=== PATIENT | male | born 1980 | race American Indian/Alaskan Native ===

== ENCOUNTER 2018-12-20 08:46 | Emergency (ER) | payer SELFPAY ==
[2018-12-20 09:05] VITALS: BP 148/96
[2018-12-20 10:00] LABS: Basophils # (Auto) 0.1 K/mm3 (0.0-0.1); Basophils % (Auto) 2.6 % (0.0-1.8); Eosinophils # (Auto) 0.1 K/mm3 (0.0-0.4); Eosinophils % (Auto) 2.4 % (0.0-4.3); Hematocrit 46.6 % (35.5-45.6); Hemoglobin 15.8 gm/dl (11.8-15.2); Lymphocytes # (Auto) 1.4 K/mm3 (1.2-5.4); Lymphocytes % (Auto) 32.7 % (13.4-35.0); Mean Corpuscular HGB Conc 34 % (32-34); Mean Corpuscular Volume 89 fl (84-94); Monocytes # (Auto) 0.3 K/mm3 (0.0-0.8); Monocytes % (Auto) 8.2 % (0.0-7.3); Platelet Count 236 K/mm3 (140-440); Red Blood Count 5.21 M/mm3 (3.65-5.03); Red Cell Distribution Width 13.5 % (13.2-15.2)
--- NOTE | 2018-12-20 10:04 | Emergency Department Report ---
ED Chest Pain HPI - General Chief Complaint: Chest Pain Stated Complaint: CHEST PAIN Time Seen by Provider: 12/20/18 10:00 Source: patient Mode of arrival: Ambulatory Limitations: No Limitations - History of Present Illness Initial Comments: 38-year-old male with no past medical history to ED with chest pain since yesterday. Patient states pain is substernal, sharp in nature and feels as if something is pulling. Patient states he noticed pain yesterday when getting ready for work. Patient works for [employer]. Denies fever, cough, shortness of breath, nausea or vomiting, diaphoresis, leg pain or swelling. Patient denies any aggravating or alleviating factors. Denies tobacco or drug use. Pt states think she may have pulled a muscle. MD Complaint: chest pain -: days(s) (1) Onset: during rest Pain Location: substernal Pain Radiation: none Severity: mild Quality: sharp, other ("pulling") Consistency: constant Improves With: nothing re: denies: nausea, vomting, diaphoresis, dyspnea Other Symptoms: denies: cough, fever, leg swelling, palpitations - Related Data Previous Rx's Medication Instructions Recorded Last Taken Type Naproxen [Naprosyn] 500 mg PO BID #20 tablet 12/20/18 Unknown Rx methOCARBAMOL [Robaxin TAB] 500 mg PO Q8HR PRN #20 tablet 12/20/18 Unknown Rx Allergies Allergy/AdvReac Type Severity Reaction Status Date / Time No Known Allergies Allergy Unverified 12/20/18 09:00 Heart Score - HEART Score History: Slightly suspicious EKG: Normal Age: < 45 Risk factors: No known risk factors Troponin: < normal limit HEART Score: 0 - Critical Actions Critical Actions: 0-3 pts:0.9-1.7%risk of adverse cardiac event.Candidate for discharge ED Review of Systems ROS: Stated complaint: CHEST PAIN Other details as noted in HPI Comment: All other systems reviewed and negative Constitutional: denies: chills, fever Respiratory: denies: cough, shortness of breath Cardiovascular: chest pain Gastrointestinal: denies: nausea, vomiting Musculoskeletal: other (denies leg pain or swelling) ED Past Medical Hx - Past Medical History Previous Medical History?: No - Surgical History Additional Surgical History: BACK - Social History Smoking Status: Never Smoker Substance Use Type: None - Medications Home Medications: Home Medications Medication Instructions Recorded Confirmed Last Taken Type Naproxen [Naprosyn] 500 mg PO BID #20 tablet 12/20/18 Unknown Rx methOCARBAMOL [Robaxin TAB] 500 mg PO Q8HR PRN #20 tablet 12/20/18 Unknown Rx ED Physical Exam - General Limitations: No Limitations General appearance: alert, in no apparent distress, other (comfortable, in no distress, appears nontoxic) - Head Head exam: Present: atraumatic, normocephalic - Eye Eye exam: Present: normal appearance - ENT ENT exam: Present: mucous membranes moist - Neck Neck exam: Present: normal inspection - Respiratory Respiratory exam: Present: normal lung sounds bilaterally. Absent: respiratory distress - Cardiovascular Cardiovascular Exam: Present: regular rate, normal rhythm - GI/Abdominal GI/Abdominal exam: Present: soft. Absent: distended, tenderness - Extremities Exam Extremities exam: Present: normal inspection. Absent: pedal edema, calf tenderness - Neurological Exam Neurological exam: Present: alert, oriented X3, CN II-XII intact. Absent: motor sensory deficit - Psychiatric Psychiatric exam: Present: normal affect, normal mood - Skin Skin exam: Present: warm, dry, intact, normal color ED Course Vital Signs 12/20/18 09:02 Temperature 97.8 F Pulse Rate 78 Respiratory 18 Rate Blood Pressure 148/96 O2 Sat by Pulse 99 Oximetry ED Medical Decision Making - Lab Data Result diagrams: 12/20/18 09:26 12/20/18 09:26 - EKG Data -: EKG Interpreted by Dc EKG shows normal: sinus rhythm, axis, intervals, QRS complexes, ST-T waves Rate: normal - EKG Data Interpretation: no acute changes - Radiology Data Radiology results: report reviewed, image reviewed - Medical Decision Making - 38 yo M w/ chest pain, feels likel pulled muscle, works for [employer] - EKG unremarkable, troponin negative - CXR normal - BP slightly hypertensive - likely chest wall pain - pt comfortable, nontoxic-appearing - will d/c at this time - return precaution given - outpt f/u advised - Differential Diagnosis chest wall pain, pneumonia, ACS Critical care attestation.: If time is entered above; I have spent that time in minutes in the direct care of this critically ill patient, excluding procedure time. ED Disposition Clinical Impression: Acute chest wall pain Disposition: - TO HOME OR SELFCARE Is pt being admited?: No Condition: Stable Instructions: Chest Pain (ED), Costochondritis (ED) Prescriptions: Naproxen [Naprosyn] 500 mg PO BID #20 tablet methOCARBAMOL [Robaxin TAB] 500 mg PO Q8HR PRN #20 tablet PRN Reason: Muscle Spasm [facility] [Primary Care Provider[facility] - 3-5 Days Forms: Work/School Release Form(ED) Time of Disposition: 11:51
--- NOTE | 2018-12-20 10:23 | XRay Report ---
CHEST 1 VIEW INDICATION: Chest pain for one day. COMPARISON: FINDINGS: Support devices: None. Heart: Within normal limits. Lungs/Pleura: No acute air space or interstitial disease. Additional findings: None. IMPRESSION: No acute findings. Signer Name: Walter Hough Jr, MD Signed: 12/20/2018 10:19 AM Workstation Name: [id number]
[2018-12-20 10:24] LABS: BUN/Creatinine Ratio 9; Blood Urea Nitrogen 9 mg/dL (9-20); Calcium 9.4 mg/dL (8.4-10.2); Hemolysis Index 15
== END 2018-12-20 12:09 | disposition home or self-care (01) ==
LOC: ED 08:46
DX: R07.89 Other chest pain (principal)
CPT/HCPCS: 36415; 71045; 80048; 84484; 85025; 93005; 93010

== ENCOUNTER 2019-01-02 19:02 | Emergency (ER) | payer OTHER ==
--- NOTE | 2019-01-02 20:03 | Emergency Department Report ---
Blank Doc - Documentation Documentation: This is a 38-year-old male that presents with right hand lac. This initial assessment/diagnostic orders/clinical plan/treatment(s) is/are subject to change based on patient's health status, clinical progression and re- assessment by fellow clinical providers in the ED. Further treatment and workup at subsequent clinical providers discretion. Patient/guardians urged not to elope from the ED as their condition may be serious if not clinically assessed and managed. Initial orders include: 1- Patient sent to [facility] for further evaluation and treatment
[2019-01-02] MEDS ORDERED: XYLOCAINE 1% MPF 5 mL INFILTRATI ONE (22:45)
[2019-01-02] MEDS ORDERED: BOOSTRIX IM ONE (22:45)
[2019-01-02] MEDS ORDERED: TYLENOL PO ONE (22:48)
--- NOTE | 2019-01-02 22:51 | Emergency Department Report ---
- General Chief Complaint: Wound/Laceration Stated Complaint: R HAND INJURY Time Seen by Provider: 01/02/19 20:00 Source: patient Mode of arrival: Ambulatory Limitations: No Limitations - History of Present Illness Initial Comments: Patient is a 38-year-old male presents to the emergency room complaints of a laceration to his right hand that occurred around 4 PM today. Patient states that he was lifting a washer and cut his hand on the bottom of the washer. He states he did not drop the washer onto him. He is able to fully move the hand and digits. He is unsure of his last tetanus immunization. He denies any past medical history or allergies medications. - Related Data Previous Rx's Medication Instructions Recorded Last Taken Type Naproxen [Naprosyn] 500 mg PO BID #20 tablet 12/20/18 Unknown Rx methOCARBAMOL [Robaxin TAB] 500 mg PO Q8HR PRN #20 tablet 12/20/18 Unknown Rx Allergies Allergy/AdvReac Type Severity Reaction Status Date / Time No Known Allergies Allergy Verified 01/02/19 19:17 ED Review of Systems ROS: Stated complaint: R HAND INJURY Other details as noted in HPI Comment: All other systems reviewed and negative ED Past Medical Hx - Past Medical History Previous Medical History?: No - Surgical History Past Surgical History?: Yes Additional Surgical History: BACK - Social History Smoking Status: Never Smoker - Medications Home Medications: Home Medications Medication Instructions Recorded Confirmed Last Taken Type Naproxen [Naprosyn] 500 mg PO BID #20 tablet 12/20/18 Unknown Rx methOCARBAMOL [Robaxin TAB] 500 mg PO Q8HR PRN #20 tablet 12/20/18 Unknown Rx ED Physical Exam - General Limitations: No Limitations General appearance: alert, in no apparent distress - Head Head exam: Present: atraumatic, normocephalic - Eye Eye exam: Present: normal appearance - ENT ENT exam: Present: mucous membranes moist - Neurological Exam Neurological exam: Present: alert, oriented X3 - Psychiatric Psychiatric exam: Present: normal affect, normal mood - Skin Skin exam: Present: warm, dry, other (4 cm laceration to the palmar surface of the right hand just distal to the right thumb, pt has FROM of all digits, able to perform thumb adduction, abduction, flexion and extension, neurovascularly intact, no foreign body visualized, no tendon involvement) ED Course Vital Signs 01/02/19 01/02/19 19:51 23:17 Temperature 98.0 F 98.0 F Pulse Rate 99 H 67 Respiratory 16 16 Rate Blood Pressure 118/78 Blood Pressure 139/87 [Right] O2 Sat by Pulse 99 98 Oximetry - Laceration /Wound Repair Right Palm Hand Wound Location: upper extremity (palmar surface of the right hand just distal to the right thumb ) Wound Length (cm): 4 Wound's Depth, Shape: superficial Wound Explored: clean Irrigated w/ Saline (ccs): 30 Betadine Prep?: Yes Anesthesia: 1% Lidocaine Volume Anesthetic (ccs): 3 Wound Repaired With: sutures Suture Size/Type: 3:0 Number of Sutures: 4 Layer Closure?: Yes Deep Layer Suture Size/Type: 4:0 (vicryl) Number Deep Layer Sutures: 3 (interrupted subcuticular) Sterile Dressing Applied?: Yes Progress: area irrigated with saline and explored for foreign body, none visualized or palpable, cleaned with betadine thoroughly, sterile drapes applied, 3 cc of 1% lidocaine used, sterile gloves worn, layer closure with 4-0 vicryl, 3 interrupted subcuticular sutures placed, skin closure with 3-0 prolene, 4 sutures applied, pt tolerated well, no complications, bleeding controlled, sterile dressing applied ED Medical Decision Making - Medical Decision Making Patient is a 38-year-old male presents to the emergency room complaints of a laceration to his right hand that occurred around 4 PM today. Patient states that he was lifting a washer and cut his hand on the bottom of the washer. He states he did not drop the washer onto him. He is able to fully move the hand and digits. He is unsure of his last tetanus immunization. He denies any past medical history or allergies medications. on exam: 4 cm laceration to the palmar surface of the right hand just distal to the right thumb, pt has FROM of all digits, able to perform thumb adduction, abduction, flexion and extension, neurovascularly intact, no foreign body visualized, no tendon involvement. laceration irrigated with saline and cleaned with betadine and repaired per procedure note. pt given tetanus immunization. advised pt to please keep area clean and dry. May wash with soap and water and immediately dry. Do not get an hot tub, bathtub, pool, or immerse in water. Sutures will need to be removed in approximately 7-10 days. Follow up with a primary care doctor in 3 days for reevaluation. Return to the emergency room for any new or worsening symptoms or any signs of infection. Critical care attestation.: If time is entered above; I have spent that time in minutes in the direct care of this critically ill patient, excluding procedure time. ED Disposition Clinical Impression: Laceration Disposition: DC-01 TO HOME OR SELFCARE Is pt being admited?: No Does the pt Need Aspirin: No Condition: Stable Instructions: Suture Care (ED), Laceration (ED) Additional Instructions: Please keep area clean and dry. May wash with soap and water and immediately dry. Do not get an hot tub, bathtub, pool, or immerse in water. Sutures will need to be removed in approximately 7-10 days. Follow up with a primary care doctor in 3 days for reevaluation. Return to the emergency room for any new or worsening symptoms or any signs of infection. Referrals: KITA SANTILLAN MD [Primary Care Provider] - 2-3 Days Forms: Work/School Release Form(ED) Time of Disposition: 22:52 Print Language: SYRIAN
[2019-01-02 23:18] VITALS: BP 139/87
== END 2019-01-02 23:16 | disposition home or self-care (01) ==
LOC: ED 19:02
DX: S61.411A Laceration without foreign body of right hand, initial encounter (principal); W45.8XXA Other foreign body or object entering through skin, initial encounter; Y93.89 Activity, other specified; Y92.89 Other specified places as the place of occurrence of the external cause; Y99.8 Other external cause status
CPT/HCPCS: 99282